=== PATIENT | male | born 2000 | race African-American/Black ===

== ENCOUNTER 2020-06-23 07:57 | Day surgery (SDC) | payer SELFPAY ==
[~2020-06-23] VITALS: Ht 177.8 cm; Wt 86.3 kg
[2020-06-23 08:32] VITALS: BP 138/80
[2020-06-23] MEDS ORDERED: CHLORHEXIDINE 15 ML UDC MM STA (08:36)
[2020-06-23] MEDS ORDERED: CHLORHEXIDINE 15 ML UDC ONE (08:43)
[2020-06-23] MEDS ORDERED: FENTANYL PF 250 MCG/5ML ONE (08:57)
[2020-06-23] MEDS ORDERED: MIDAZOLAM 1 MG/ML, 2ML ONE (08:57)
[2020-06-23] MEDS ORDERED: LACTATED RINGERS 1,000 ML IV SCH (09:00)
[2020-06-23] MEDS ORDERED: PLEASE ENTER HEIGHT AND WEIGHT MC SCH (09:00)
[2020-06-23] MEDS ORDERED: NO MEDICATIONS (09:02)
[2020-06-23] MEDS ORDERED: EPINEPHRINE 1 MG/ML, 1ML ONE (09:11)
[2020-06-23] MEDS ORDERED: BUPIVACAINE/PF 0.5% ONE (09:11)
[2020-06-23] MEDS ORDERED: PROMETHAZINE 25 MG SUPP PR PRN (10:30)
[2020-06-23] MEDS ORDERED: MEPERIDINE/PF 25MG/0.5ML IVPush PRN (10:30)
[2020-06-23] MEDS ORDERED: HYDROmorphone 1 MG/ML, 1ML INJ IVPush PRN (10:30)
[2020-06-23] MEDS ORDERED: PROMETHAZINE 25 MG/ML, 1ML IVPush PRN (10:30)
[2020-06-23] MEDS ORDERED: METHOCARBAMOL 1,000 MG in DEXTROSE 5% 100 ML IV PRN (10:30)
[2020-06-23] MEDS ORDERED: OXYcodone 5 MG/5 ML ORAL.SOL UDC PO PRN (10:30)
[2020-06-23] MEDS ORDERED: ONDANSETRON 2MG/ML, 2ML IVPush PRN (10:30)
[2020-06-23] MEDS ORDERED: ACETAMINOPHEN 325 MG TABLET PO PRN (10:30)
[2020-06-23] MEDS ORDERED: PROPOFOL 10 MG/ML, 20ML ONE (10:44)
[2020-06-23] MEDS ORDERED: DEXAMETHASONE 4 MG/ML, 1ML ONE (10:44)
[2020-06-23] MEDS ORDERED: ROCURONIUM 10MG/ML,5ML ONE (10:44)
[2020-06-23] MEDS ORDERED: ONDANSETRON 2MG/ML, 2ML ONE (10:44)
[2020-06-23] MEDS ORDERED: NEOSTIGMINE 1 MG/ML, 10ML ONE (10:44)
[2020-06-23] MEDS ORDERED: CEFAZOLIN 1,000 MG ONE (10:44)
[2020-06-23] MEDS ORDERED: SUCCINYLCHOLINE 20 MG/ML, 10ML ONE (10:44)
[2020-06-23] MEDS ORDERED: SUGAMMADEX 200 MG/2 ML IVPush ONE (10:44)
[2020-06-23] MEDS ORDERED: GLYCOPYRROLATE 0.2MG/1ML, 5ML ONE (10:44)
[2020-06-23] MEDS ORDERED: OXYcodone 5 MG/5 ML ORAL.SOL UDC ONE (10:45)
[2020-06-23] MEDS ORDERED: FENTANYL PF 100 MCG/2ML ONE (10:45)
[2020-06-23] MEDS: FENTANYL PF 100 MCG/2ML IV PRN ×2 (11:30→11:40)
== END 2020-06-23 13:30 | disposition home or self-care (01) ==
LOC: OUT 07:57
PROVIDERS: ATTEND Orthopaedic Surgery
DX: S86.012A Strain of left Achilles tendon, initial encounter (principal); G89.18 Other acute postprocedural pain; J45.909 Unspecified asthma, uncomplicated; X58.XXXA Exposure to other specified factors, initial encounter; Y93.67 Activity, basketball; Y92.89 Other specified places as the place of occurrence of the external cause; Y99.8 Other external cause status
CPT/HCPCS: 27650; 64445; J0171; J0690; J1100; J2250; J2405; J2704; J3010; J7120; J2710; J0330